=== PATIENT | female | born 1960 | race Caucasian/White ===

== ENCOUNTER 2019-01-12 08:59 | Day surgery (SDC) | payer BC ==
[~2019-01-12] VITALS: Ht 154.9 cm; Wt 73.0 kg
[~2019-01-12 08:59] MED LIST: CHOLESTER
[2019-01-12 10:07] VITALS: Ht 154.9 cm; Wt 73.0 kg
[2019-01-12 10:25] VITALS: BP 123/82; PULSE 80; RESP 16
[2019-01-12] MEDS ORDERED: LIDOCAINE 4% SOLUTION 50 ML BTL ONE (10:33)
[2019-01-12] MEDS ORDERED: OMEGA 3 (11:07)
[2019-01-12] MEDS ORDERED: GLUCOSAMINE (11:07)
[2019-01-12] MEDS ORDERED: BIOTIN (11:07)
[2019-01-12] MEDS ORDERED: VITAMINS (11:07)
[2019-01-12] MEDS ORDERED: GABAPENTIN (11:07)
[2019-01-12 11:50] VITALS: BP 117/79; RESP 22
== END 2019-01-12 13:00 | disposition home or self-care (01) ==
LOC: GIL 08:59
PROVIDERS: ATTEND Internal Medicine Gastroenterology
DX: Z12.11 Encounter for screening for malignant neoplasm of colon (principal); K64.9 Unspecified hemorrhoids; K57.30 Diverticulosis of large intestine without perforation or abscess without bleeding
CPT/HCPCS: 43239; 45380; 88305; 88312; 88313; Z7610

== ENCOUNTER 2019-05-04 05:39 | Day surgery (SDC) | payer BC ==
[2019-04-30 14:13] VITALS: Ht 152.4 cm; Wt 74.0 kg
[~2019-05-04] VITALS: Ht 152.4 cm; Wt 74.0 kg
[2019-05-04] VITALS (34 sets, daily range): BP systolic 100–153; BP diastolic 57–90; PULSE 94–110; RESP 5–17
[~2019-05-04 05:39] MED LIST changes: +BIOTIN; -CHOLESTER; +GABAPENTIN; +GLUCOSAMINE; +OMEGA 3; +OMEP40CA38 PO; +VITAMINS
[2019-05-04] MEDS ORDERED: ROPIVACAINE 0.5 % 30 ML VIAL ONE (07:01)
[2019-05-04] MEDS ORDERED: NEOMYC/POLYMYX/BACIT 30 GM OINT ONE (07:01)
[2019-05-04] MEDS ORDERED: CEFAZOLIN 1 GM INJ ONE (07:29)
[2019-05-04] MEDS ORDERED: MIDAZOLAM 1 MG/ML 2 ML INJ ONE (07:29)
[2019-05-04] MEDS ORDERED: PROPOFOL 20 ML ONE (07:29)
[2019-05-04] MEDS ORDERED: ONDANSETRON 4 MG INJ IV PRN (07:30)
[2019-05-04] MEDS ORDERED: OXYCODONE/ACETAMINOPHEN (5/325) TAB PO PRN ×2 (07:30)
[2019-05-04] MEDS ORDERED: FENTAnyl 50 MCG/ML VIAL IV PRN ×3 (07:30)
[2019-05-04] MEDS ORDERED: HYDROmorphONE 1 MG/5 ML IV SYRINGE IV PRN ×2 (07:30)
[2019-05-04] MEDS ORDERED: hydrALAzine 20 MG INJ IV PRN (07:30)
[2019-05-04] MEDS ORDERED: DIPHENHYDRAMINE 50 MG INJ IV PRN (07:30)
[2019-05-04] MEDS ORDERED: MEPERIDINE 25 MG INJ IV PRN (07:30)
[2019-05-04] MEDS ORDERED: LABETALOL HCL 20MG INJ IV PRN (07:30)
[2019-05-04] MEDS ORDERED: ONDANSETRON 4 MG INJ ONE (07:41)
[2019-05-04] MEDS ORDERED: METOCLOPRAMIDE 10 MG INJ ONE (07:41)
[2019-05-04] MEDS ORDERED: FENTAnyl 50 MCG/ML VIAL ONE (07:42)
[2019-05-04] MEDS ORDERED: morphine 2 MG INJ IV PRN (08:00)
[2019-05-04] MEDS ORDERED: KETOROLAC 30 MG INJ IV SCH (08:00)
[2019-05-04] MEDS ORDERED: HYDROmorphONE 2 MG/ML SYG ONE (08:08)
[2019-05-04] MEDS: HYDROmorphONE 1 MG/5 ML IV SYRINGE IV PRN ×2 (09:23→09:32)
== END 2019-05-04 12:57 | disposition home or self-care (01) ==
LOC: SDS 05:39
PROVIDERS: ATTEND Orthopaedic Surgery
DX: M23.222 Derangement of posterior horn of medial meniscus due to old tear or injury, left knee (principal); M94.262 Chondromalacia, left knee
CPT/HCPCS: 29881; 82306; J0690; J1170; J1885; J2250; J2405; J2765; J2795; J3010; Z7512; Z7610